=== PATIENT | female | born 1970 | race Caucasian/White ===

== ENCOUNTER 2024-06-07 15:32 | Emergency (ER) | payer OTHER ==
[~2024-06-07] VITALS: Ht 175.3 cm; Wt 68.9 kg
[2024-06-07 18:40] VITALS: BP 129/77; TEMP 98.8; O2SAT 98
== END 2024-06-07 18:41 | disposition home or self-care (01) ==
LOC: ER 15:37
DX: S13.4XXA Sprain of ligaments of cervical spine, initial encounter (principal); S20.211A Contusion of right front wall of thorax, initial encounter; S30.1XXA Contusion of abdominal wall, initial encounter; Z60.2 Problems related to living alone; V43.52XA Car driver injured in collision with other type car in traffic accident, initial encounter; Y93.89 Activity, other specified; Y92.488 Other paved roadways as the place of occurrence of the external cause; Y99.8 Other external cause status
CPT/HCPCS: 71250-TC; 72125-TC